=== PATIENT | male | born 1980 | race Caucasian/White ===

== ENCOUNTER 2023-10-14 03:59 | Emergency (ER) | payer BC, MEDICAID ==
[2023-10-14] MEDS ORDERED: Naloxone 2 MG/2 ML Syringe IVPUSH PRN (04:26)
[2023-10-14] MEDS ORDERED: HYDROmorphone 2 MG/ML Syringe IVPUSH ONE (04:26)
[2023-10-14 04:57] LABS: BASOPHILS ABSOLUTE AUTO 0.08 K/uL (0.02-0.10); BASOPHILS PERCENT AUTO 0.9 % (0.0-0.5); EOSINOPHILS ABSOLUTE AUTO 0.21 K/uL (0.04-0.40); EOSINOPHILS PERCENT AUTO 2.5 % (1.0-5.0); HEMATOCRIT 41.7 % (40.0-54.0); HEMOGLOBIN 15.7 g/dL (13.0-18.0); LYMPHOCYTES ABSOLUTE AUTO 2.08 K/uL (1.50-4.00); LYMPHOCYTES PERCENT AUTO 24.3 % (20.0-40.0); MEAN CORPUSCULAR HEMOGLOBIN 29.8 pg (27.0-32.0); MEAN CORPUSCULAR HGB CONC 37.6 g/dL (31.0-35.0); MEAN CORPUSCULAR VOLUME 79 fL (76-96); MEAN PLATELET VOLUME 9.7 fL (6.0-10.0); MONOCYTES ABSOLUTE AUTO 0.78 K/uL (0.20-0.80); MONOCYTES PERCENT AUTO 9.1 % (3.0-10.0); NEUTROPHILS PERCENT AUTO 63.2 % (45.0-70.0); PLATELET COUNT,PLT 260 K/uL (150-400); RED BLOOD CELL COUNT 5.26 M/uL (4.50-6.50); RED CELL DISTRIBUTION WIDTH 12.1 % (11.0-16.0); WHITE BLOOD CELL COUNT,WBC 8.6 K/uL (4.0-11.0)
[2023-10-14 04:58] LABS: APPEARANCE,URINE CLEAR (CLEAR); BILIRUBIN,URINE NEGATIVE (NEGATIVE); COLOR,URINE YELLOW; GLUCOSE,URINE NEGATIVE (NEGATIVE); KETONES,URINE NEGATIVE (NEGATIVE); LEUKOCYTE ESTERASE,URINE NEGATIVE (NEGATIVE); NITRITE,URINE NEGATIVE (NEGATIVE); OCCULT BLOOD,URINE MODERATE (NEGATIVE); PH,URINE 5.5 (5.0-8.0); PROTEIN,URINE NEGATIVE (NEGATIVE); UROBILINOGEN,URINE 0.2 E.U./dL (0.2-1.0)
[2023-10-14 05:07] LABS: EPITHELIAL CELLS,URINE FEW /HPF; HYALINE CASTS,URINE FEW /HPF; MUCUS,URINE FEW /HPF; WBC,URINE 0-5 /HPF
[2023-10-14 05:11] LABS: A/G RATIO 1.1 (0.8-2.0); ALBUMIN 3.7 g/dL (3.4-5.0); ANION GAP 13.2 mmol/L (5.0-15.0); BILIRUBIN TOTAL 1.2 mg/dL (0.0-1.0); BUN/CREATININE RATIO 14.5 (6-25); CALCIUM 8.4 mg/dL (8.5-10.1); CARBON DIOXIDE,CO2 26.7 mmol/L (21.0-32.0); CREATININE 1.1 mg/dL (0.70-1.30); EST CRCL DRUG DOSING (CG) 98.87 mL/min; POTASSIUM,K 3.9 mmol/L (3.5-5.1)
[2023-10-14] MEDS ORDERED: Acetaminophen/HYDROcodone 325-5 MG Tab ONE (06:00)
== END 2023-10-14 06:15 | disposition home or self-care (01) ==
LOC: LB.ED 03:59
DX: N23 Unspecified renal colic (principal); Z88.8 Allergy status to other drugs, medicaments and biological substances
CPT/HCPCS: 36415; 74176; 80053; 81001; 83690; 85025; 96374; 99284-25; A9270-GY; J1170